=== PATIENT | male | born 1965 | race Caucasian/White ===

== ENCOUNTER 2020-08-25 19:34 | Emergency (ER) | payer BC, MEDICAID ==
[2020-08-25 19:47] VITALS: PULSE 94
[2020-08-25] MEDS ORDERED: Alum Hydrox/Mag Hydrox/Simeth 30 ML, Lidocaine 2% 15 ML PO ONE ×2 (19:50)
--- NOTE | 2020-08-25 20:16 | EDM.PDOC ---
ED HPI GENERAL MEDICAL PROBLEM - General Chief Complaint: Gastrointestinal Problem Stated Complaint: HEARTBURN Time Seen by Provider: 08/25/20 19:49 Source of Information: Reports: Patient, RN Notes Reviewed History Limitations: Reports: No Limitations - History of Present Illness INITIAL COMMENTS - FREE TEXT/NARRATIVE: Patient is a 55-year-old male who presents to the ER for his heartburn. Patient notes that roughly 45 minutes prior to arrival to the ER, he has had heartburn or indigestion, that just does not seem to go away. He does take Tums on a regular basis, did try some baking soda with water however this is not made the pain Balint at all. Does have a history of ulcers and indigestion, notes he was on Zantac in the past but does not take any sort of PPI or other heartburn controlling medication at this time. He is not having any chest pain, any shortness of breath, lightheadedness, vomiting or diarrhea, he did state he was slightly nauseous with this. Patient also notes that he has a history of anxiety, and he recently his about a year ago and notes that his diet has not been the best. Primary care provider is Dr. Quiroz in [place]. - Related Data Allergies Allergy/AdvReac Type Severity Reaction Status Date / Time No Known Allergies Allergy Verified 08/25/20 19:47 Home Meds: Home Meds Levothyroxine [Synthroid] 50 mcg PO ACBREAKFAST 08/25/20 [History] Sertraline [Zoloft] 100 mg PO BID 08/25/20 [History] Venlafaxine [Effexor] 37.5 mg PO DAILY 08/25/20 [History] hydrOXYzine HCL [Atarax] 25 mg PO BID PRN 08/25/20 [History] Past Medical History Gastrointestinal History: Reports: GERD, Hemorrhoids, Helicobacter Pylori Musculoskeletal History: Reports: Fibromyalgia Psychiatric History: Reports: Anxiety, Depression Endocrine/Metabolic History: Reports: Hypothyroidism - Past Surgical History Other GI Surgeries/Procedures: Perforated ulcer Social & Family History - Tobacco Use Tobacco Use Status *Q: Current Every Day Tobacco User Years of Tobacco use: 30 Packs/Tins Daily: 1 - Caffeine Use Caffeine Use: Reports: Soda - Recreational Drug Use Recreational Drug Use: No ED ROS GENERAL - Review of Systems Review Of Systems: Comprehensive ROS is negative, except as noted in HPI. ED EXAM, GI/ABD - Physical Exam Exam: See Below Exam Limited By: No Limitations General Appearance: Alert, WD/WN, No Apparent Distress, Anxious (generalized) Respiratory/Chest: No Respiratory Distress, Lungs Clear, Normal Breath Sounds, No Accessory Muscle Use, Chest Non-Tender Cardiovascular: Normal Peripheral Pulses, Regular Rate, Rhythm, No Edema GI/Abdominal Exam: Normal Bowel Sounds, Soft, Non-Tender, No Distention, No Mass Extremities: Normal Inspection, Normal Capillary Refill Neurological: Alert, Oriented, Normal Cognition, No Motor/Sensory Deficits Psychiatric: Normal Affect, Normal Mood Skin Exam: Warm, Dry, Intact, Normal Color, No Rash Course - Vital Signs Last Recorded V/S: Last Vital Signs Temp 97.4 F 08/25/20 19:41 Pulse 94 08/25/20 19:41 Resp 14 08/25/20 19:41 BP 166/108 H 08/25/20 19:41 Pulse Ox 98 08/25/20 19:41 - Orders/Labs/Meds Meds: Medications Discontinued Medications Generic Name Dose Route Start Last Admin Trade Name Edna PRN Reason Stop Dose Admin Al Hydroxide/Mg Hydroxide 30 0 ml 08/25/20 19:50 08/25/20 19:58 ml/ Lidocaine HCl 15 ml PO 08/25/20 19:51 45 ml ONETIME ONE Administration - Re-Assessments/Exams Free Text/Narrative Re-Assessment/Exam: 08/25/20 20:12 Patient presents in the ER for evaluation of his heartburn, he was given a GI cocktail the time of triage and this has helped most of his heartburn sensation, notes that he is pain-free at this time. Patient would like just to be monitored for a little while, and not have any further work-up done if possible, to see if it is truly just heartburn in nature. This is fine with me as a patient is on the library monitor, and has no obvious ST segment change or arrhythmias noted. We will place the patient on omeprazole on a daily basis, with Pepcid to bridge over the next 3 days, and will have him take Maalox as needed for ongoing heartburn management. Departure - Departure Time of Disposition: 20:13 Disposition: Home, Self-Care 01 Condition: Good Clinical Impression: Heartburn - Discharge Information *PRESCRIPTION DRUG MONITORING PROGRAM REVIEWED*: No *COPY OF PRESCRIPTION DRUG MONITORING REPORT IN PATIENT ESTELLA: No Instructions: Heartburn, [id number] Referrals: Madelyn Quiroz MD [Primary Care Provider] - Additional Instructions: You were seen in this ER regarding your heartburn sensation. A GI cocktail was given to you, this seemed to help relieve most of your symptoms. On an outpatient basis, highly recommend that you take omeprazole (Prilosec), on a daily basis, you may bridge over the next 3 days, with Pepcid (famotidine), as the omeprazole will take 3 days to start providing benefit. You may also use Maalox, which is [id number] for ongoing indigestion/heartburn feelings. Recommend you follow-up with your primary care provider, for further management, and or imaging studies as warranted. If you have not had an EGD done in a while, they may opt to do upper GI endoscopy for further evaluation. Please return to the ER at any time if your symptoms should change or worsen. Sepsis Event Note (ED) - Evaluation Sepsis Screening Result: No Definite Risk - Focused Exam Vital Signs: Vital Signs Temp Pulse Resp BP Pulse Ox 08/25/20 19:41 97.4 F 94 14 166/108 H 98
[2020-08-25 20:30] VITALS: BP 141/96
== END 2020-08-25 20:42 | disposition home or self-care (01) ==
LOC: JD.ED 19:34
DX: R12 Heartburn (principal); E03.9 Hypothyroidism, unspecified; Z72.0 Tobacco use; Z79.899 Other long term (current) drug therapy
CPT/HCPCS: 99283; A9270

== ENCOUNTER 2020-11-23 15:59 | Emergency (ER) | payer MEDICAID ==
[2020-11-23 16:46] VITALS: BP 155/102; PULSE 93
[2020-11-23] MEDS ORDERED: LORazepam 2 MG/ML SDV IM ONE (17:14)
--- NOTE | 2020-11-23 17:14 | EDM.PDOC ---
ED HPI GENERAL MEDICAL PROBLEM - General Chief Complaint: Behavioral/Psych Stated Complaint: PANIC ATTACK Time Seen by Provider: 11/23/20 17:07 - History of Present Illness INITIAL COMMENTS - FREE TEXT/NARRATIVE: 55-year-old male presents the emergency room with a panic attack. Patient was having some heartburn and this seemed to trigger his anxiety. He drank some baking soda and feels better from a heartburn perspective his panic attack is improved somewhat also but it is still persistent. Patient did not have any associated chest pain breathing difficulties or shortness of breath with this. The patient has had problems with his stomach and reflux he was seen here and started on omeprazole and this seemed to work pretty good but he did not continue it. - Related Data Allergies Allergy/AdvReac Type Severity Reaction Status Date / Time No Known Allergies Allergy Verified 11/23/20 16:46 Home Meds: Home Meds Levothyroxine [Synthroid] 50 mcg PO ACBREAKFAST 08/25/20 [History] Sertraline [Zoloft] 100 mg PO BID 08/25/20 [History] Venlafaxine [Effexor] 37.5 mg PO DAILY 08/25/20 [History] hydrOXYzine HCL [Atarax] 25 mg PO BID PRN 08/25/20 [History] Past Medical History Gastrointestinal History: Reports: GERD, Hemorrhoids, Helicobacter Pylori Musculoskeletal History: Reports: Fibromyalgia Psychiatric History: Reports: Anxiety, Depression, Panic Attack Endocrine/Metabolic History: Reports: Hypothyroidism - Past Surgical History Other GI Surgeries/Procedures: Perforated ulcer Other Musculoskeletal Surgeries/Procedures:: Matthias. wrist Social & Family History - Tobacco Use Tobacco Use Status *Q: Current Every Day Tobacco User Years of Tobacco use: 30 Packs/Tins Daily: 0.5 - Caffeine Use Caffeine Use: Reports: Soda - Recreational Drug Use Recreational Drug Use: No ED ROS GENERAL - Review of Systems Review Of Systems: See Below Constitutional: Reports: No Symptoms HEENT: Reports: No Symptoms Respiratory: Reports: No Symptoms Cardiovascular: Reports: No Symptoms GI/Abdominal: Reports: Other (Does have lots of heartburn and reflux). Denies: Constipation, Diarrhea, Nausea, Vomiting : Reports: No Symptoms Musculoskeletal: Reports: No Symptoms ED EXAM, GENERAL - Physical Exam Exam: See Below Exam Limited By: No Limitations General Appearance: Alert, Anxious, Other (Patient is anxious but is very cooperative and answers questions appropriate) Head: Atraumatic, Normocephalic Neck: Normal Inspection, Supple, Non-Tender, Full Range of Motion Respiratory/Chest: No Respiratory Distress, Lungs Clear, Normal Breath Sounds Cardiovascular: Regular Rate, Rhythm, No Edema, No Murmur GI/Abdominal: Normal Bowel Sounds, Soft, Non-Tender Back Exam: Normal Inspection. No: CVA Tenderness (L), CVA Tenderness (R) Extremities: Normal Inspection, Normal Range of Motion Course - Vital Signs Last Recorded V/S: Last Vital Signs Temp 36.4 C 11/23/20 16:44 Pulse 93 11/23/20 16:44 Resp 18 11/23/20 16:44 BP 155/102 H 11/23/20 16:44 Pulse Ox 99 11/23/20 16:44 - Orders/Labs/Meds Meds: Medications Discontinued Medications Generic Name Dose Route Start Last Admin Trade Name Edna PRN Reason Stop Dose Admin Lorazepam 2 mg 11/23/20 17:14 11/23/20 17:32 Lorazepam 2 Mg/Ml Sdv IM 11/23/20 17:15 2 mg ONETIME ONE Administration - Re-Assessments/Exams Free Text/Narrative Re-Assessment/Exam: 11/23/20 18:39 Patient was given 2 mg of Ativan I am prior to doing this the patient assured me he would not drive home he and he would arrange a ride. Departure - Departure Time of Disposition: 18:40 Disposition: Eloped 07 Clinical Impression: Anxiety - Discharge Information Referrals: PCP,None [Primary Care Provider] - Forms: ED Department Discharge Additional Instructions: Patient did elope but however we did discuss starting famotidine. Sepsis Event Note (ED) - Evaluation Sepsis Screening Result: No Definite Risk - Focused Exam Vital Signs: Vital Signs Temp Pulse Resp BP Pulse Ox 11/23/20 16:44 36.4 C 93 18 155/102 H 99
== END 2020-11-23 18:40 | disposition left against medical advice (07) ==
LOC: JD.ED 15:59
DX: F41.9 Anxiety disorder, unspecified (principal); E03.9 Hypothyroidism, unspecified; Z72.0 Tobacco use; Z79.899 Other long term (current) drug therapy
CPT/HCPCS: 96372; 99283; J2060

== ENCOUNTER 2020-11-25 14:28 | Emergency (ER) | payer MEDICAID ==
[2020-11-25 14:42] VITALS: BP 155/112; PULSE 99
--- NOTE | 2020-11-25 15:33 | EDM.PDOC ---
ED HPI GENERAL MEDICAL PROBLEM - General Chief Complaint: ENT Problem Stated Complaint: PLASTIC FORK IN THROAT Time Seen by Provider: 11/25/20 14:55 Source of Information: Reports: Patient, RN Notes Reviewed History Limitations: Reports: No Limitations - History of Present Illness INITIAL COMMENTS - FREE TEXT/NARRATIVE: Patient is a 55-year-old male who presents to the ER for evaluation of a plastic fork being stuck in his throat. Patient notes he was eating with a plastic fork prior to coming to the ER, when he noticed a piece of the fork was missing. He became somewhat panicked, and thought maybe he ingested this. He states he is still able to drink fluids, he is not having any increased shortness of breath. Notes that he was seen in this ER roughly 2 days ago for his anxiety, so he is not sure if he is just overly anxious or if he actually has a piece of the fork stuck in his throat. Vitals are stable, patient is visibly anxious however no other visualized symptoms have manifested, he is not drooling, he does not look as if he is choking. Patient feels a slight scratchy sensation in his throat however again is able to keep fluids down since the possible ingestion. Patient denies any other sick-like symptoms, fever/chills, cough/shortness of breath, nausea/vomiting/diarrhea. - Related Data Allergies Allergy/AdvReac Type Severity Reaction Status Date / Time No Known Allergies Allergy Verified 11/25/20 14:42 Home Meds: Home Meds Levothyroxine [Synthroid] 50 mcg PO ACBREAKFAST 08/25/20 [History] Sertraline [Zoloft] 100 mg PO BID 08/25/20 [History] Venlafaxine [Effexor] 37.5 mg PO DAILY 08/25/20 [History] hydrOXYzine HCL [Atarax] 25 mg PO BID PRN 08/25/20 [History] Past Medical History Gastrointestinal History: Reports: GERD, Hemorrhoids, Helicobacter Pylori Musculoskeletal History: Reports: Fibromyalgia Psychiatric History: Reports: Anxiety, Depression, Panic Attack Endocrine/Metabolic History: Reports: Hypothyroidism - Past Surgical History Other GI Surgeries/Procedures: Perforated ulcer Other Musculoskeletal Surgeries/Procedures:: Matthias. wrist Social & Family History - Tobacco Use Tobacco Use Status *Q: Current Every Day Tobacco User Years of Tobacco use: 20 Packs/Tins Daily: 0.5 - Caffeine Use Caffeine Use: Reports: Soda - Recreational Drug Use Recreational Drug Use: No ED ROS ENT - Review of Systems Review Of Systems: Comprehensive ROS is negative, except as noted in HPI. ED EXAM, ENT - Physical Exam Exam: See Below Exam Limited By: No Limitations General Appearance: Alert, WD/WN, No Apparent Distress, Anxious (slight visible generalized anxiety noted) Eye Exam: Bilateral Eye: EOMI Mouth/Throat: Normal Inspection, Normal Gums, Normal Lips, Normal Oropharynx, Normal Teeth Head: Atraumatic, Normocephalic Neck: Normal Inspection, Supple, Non-Tender, Full Range of Motion Respiratory/Chest: No Respiratory Distress, Lungs Clear, Normal Breath Sounds, No Accessory Muscle Use, Chest Non-Tender Cardiovascular: Normal Peripheral Pulses, Regular Rate, Rhythm, No Edema GI/Abdominal: Normal Bowel Sounds, Soft, Non-Tender, No Distention, No Mass Extremities: Normal Inspection, Normal Capillary Refill Neurological: Alert, Oriented, Normal Cognition, No Motor/Sensory Deficits Psychiatric: Anxious (generalized anxiety noted) Skin: Warm, Dry, Intact, Normal Color, No Rash Course - Vital Signs Last Recorded V/S: Last Vital Signs Temp 97 F 11/25/20 14:40 Pulse 99 11/25/20 14:40 Resp 18 11/25/20 14:40 BP 155/112 H 11/25/20 14:40 Pulse Ox 99 11/25/20 14:40 - Re-Assessments/Exams Free Text/Narrative Re-Assessment/Exam: 11/25/20 15:32 Patient presents to the ER for a possible ingestion of a plastic fork. For today's purposes, we will give him some to drink, to make sure that he keep fluids down, I do not believe I will be able to visualize the fork as he points to his [place] apple area as where he thinks it is stuck. Patient is not in any visible respiratory distress, he is somewhat anxious but vitals are stable. Patient verbalized understanding of this plan at this time. 11/25/20 16:00 Patient feels better at this time, go ahead and discharge home with general recommendations. Departure - Departure Time of Disposition: 16:00 Disposition: Home, Self-Care 01 Condition: Good Clinical Impression: Foreign body ingestion Qualifiers: Encounter type: initial encounter Qualified Code(s): T18.9XXA - Foreign body of alimentary tract, part unspecified, initial encounter - Discharge Information *PRESCRIPTION DRUG MONITORING PROGRAM REVIEWED*: No *COPY OF PRESCRIPTION DRUG MONITORING REPORT IN PATIENT ESTELLA: No Instructions: Swallowed Foreign Body, Adult, [id number] Forms: ED Department Discharge Additional Instructions: You were evaluated in the ER today for a suspected ingestion of a plastic fork. You were observed for some time in the ER, and exhibited no worsening symptoms, that would warrant further investigation at this time. You were able to drink appropriately, and will be discharged home with general recommendations. If you should develop any sort of worsening abdominal pain, or coughing/puking up blood, or issues where you are not able to have a bowel movement, that should be cause for concern to return to the ER for further evaluation. Please return to the ER at any time if symptoms change or worsen. Sepsis Event Note (ED) - Evaluation Sepsis Screening Result: No Definite Risk - Focused Exam Vital Signs: Vital Signs Temp Pulse Resp BP Pulse Ox 11/25/20 14:40 97 F 99 18 155/112 H 99
== END 2020-11-25 16:12 | disposition home or self-care (01) ==
LOC: JD.ED 14:28
DX: T18.198A Other foreign object in esophagus causing other injury, initial encounter (principal); E03.9 Hypothyroidism, unspecified; Z79.899 Other long term (current) drug therapy; Z20.822 Contact with and (suspected) exposure to COVID-19; Z72.0 Tobacco use
CPT/HCPCS: 99282; 99283

== ENCOUNTER 2022-01-23 15:02 | Emergency (ER) | payer MEDICAID, MEDICARE ==
[2022-01-23 15:33] VITALS: BP 161/97; PULSE 102
[2022-01-23] MEDS ORDERED: Lactated Ringers 1,000 ML IV ONE (16:16)
[2022-01-23] MEDS ORDERED: LORazepam 2 MG/ML SDV IVPUSH ONE (16:16)
[2022-01-23 17:18] LABS: CORONAVIRUS COVID-19 NAA POSITIVE (NEGATIVE)
== END 2022-01-23 19:25 | disposition home or self-care (01) ==
LOC: JD.ED 15:02
DX: U07.1 COVID-19 (principal); E03.9 Hypothyroidism, unspecified; Z79.899 Other long term (current) drug therapy
CPT/HCPCS: 0241U; 36415; 80053; 83735; 84484; 85025; 93005; 96361; 96374; 99283; J2060; J7120

== ENCOUNTER 2022-01-28 20:14 | Emergency (ER) | payer MEDICARE ==
[2022-01-28 21:08] VITALS: BP 159/109; PULSE 81
== END 2022-01-28 21:55 | disposition home or self-care (01) ==
LOC: JD.ED 20:14
DX: U07.1 COVID-19 (principal); E03.9 Hypothyroidism, unspecified; F17.210 Nicotine dependence, cigarettes, uncomplicated; Z79.899 Other long term (current) drug therapy; Z86.16 Personal history of COVID-19
CPT/HCPCS: 99282

== ENCOUNTER 2024-03-10 11:46 | Emergency (ER) | payer MEDICARE ==
[2024-03-10] MEDS: LORazepam 1 MG Tab PO ONE (12:35)
[2024-03-10 12:46] LABS: BASOPHILS ABSOLUTE AUTO 0.1 K/mm3 (0.0-0.2); BASOPHILS PERCENT AUTO 1.1 % (0.0-1.0); EOSINOPHILS ABSOLUTE AUTO 0.2 K/mm3 (0.0-0.4); EOSINOPHILS PERCENT AUTO 2.8 % (0.0-6.0); HEMATOCRIT 42.7 % (42.0-52.0); HEMOGLOBIN 14.2 gm/dl (14.0-18.0); IMMATURE GRAN ABSOLUTE AUTO 0.01 K/mm3 (0.00-0.05); IMMATURE GRAN PERCENT AUTO 0.2 % (0.0-0.4); LYMPHOCYTES ABSOLUTE AUTO 2.3 K/mm3 (1.0-4.8); LYMPHOCYTES PERCENT AUTO 41.5 % (24.0-44.0); MEAN CORPUSCULAR HEMOGLOBIN 28.9 pg (28.0-32.0); MEAN CORPUSCULAR HGB CONC 33.3 g/dl (32.0-36.0); MEAN PLATELET VOLUME 9.5 fl (9.4-12.4); MONOCYTES ABSOLUTE AUTO 0.4 K/mm3 (0.0-0.8); MONOCYTES PERCENT AUTO 8.1 % (0.0-8.0); NEUTROPHILS ABSOLUTE AUTO 2.5 K/mm3 (1.8-7.7); NEUTROPHILS PERCENT AUTO 46.3 % (41.0-71.0); PLATELET COUNT,PLT 251 K/mm3 (150-400); RED BLOOD CELL COUNT 4.91 M/mm3 (4.52-5.90); WHITE BLOOD CELL COUNT,WBC 5.44 K/mm3 (3.9-11.3)
[2024-03-10 13:17] LABS: ALBUMIN 3.2 g/dl (3.4-5.0); ANION GAP 12.1 (5-15); BILIRUBIN TOTAL 0.3 mg/dL (0.2-1.0); BUN/CREATININE RATIO 10.8 (14-18); CALCIUM 8.9 mg/dL (8.5-10.1); CREATININE 1.3 mg/dL (0.7-1.3); EST CRCL DRUG DOSING (CG) 76.15 mL/min; POTASSIUM,K 4.1 mEq/L (3.5-5.1); PROTEIN TOTAL,TP 6.5 g/dl (6.4-8.2); TSH 0.943 uIU/mL (0.358-3.74)
[2024-03-10 13:54] VITALS: BP 133/100; PULSE 64
== END 2024-03-10 13:55 | disposition home or self-care (01) ==
LOC: JD.ED 11:46
DX: F41.0 Panic disorder [episodic paroxysmal anxiety] (principal); K21.9 Gastro-esophageal reflux disease without esophagitis; E03.9 Hypothyroidism, unspecified; F17.210 Nicotine dependence, cigarettes, uncomplicated; Z86.16 Personal history of COVID-19; Z79.899 Other long term (current) drug therapy; Z79.890 Hormone replacement therapy
CPT/HCPCS: 36415; 80053; 84443; 85025; 99284; A9270